=== PATIENT | female | born 1995 | race African-American/Black ===

== ENCOUNTER 2024-02-06 17:11 | Emergency (ER) | payer OTHER ==
[~2024-02-06] VITALS: Ht 175.3 cm; Wt 63.5 kg
[2024-02-06 17:39] VITALS: BP 105/68; TEMP 99.3
[2024-02-06 18:06] VITALS: O2SAT 98
== END 2024-02-06 18:06 | disposition home or self-care (01) ==
LOC: ER 17:31
DX: G44.209 Tension-type headache, unspecified, not intractable (principal); Z88.0 Allergy status to penicillin

== ENCOUNTER 2024-06-18 19:21 | Emergency (ER) | payer OTHER ==
[~2024-06-18] VITALS: Ht 175.3 cm; Wt 63.5 kg
[2024-06-18 20:37] VITALS: BP 122/73; TEMP 99.2; O2SAT 100
== END 2024-06-18 20:59 | disposition home or self-care (01) ==
LOC: ER 19:25
DX: S61.211A Laceration without foreign body of left index finger without damage to nail, initial encounter (principal); Z88.0 Allergy status to penicillin; W26.0XXA Contact with knife, initial encounter; Y93.89 Activity, other specified; Y92.090 Kitchen in other non-institutional residence as the place of occurrence of the external cause; Y99.8 Other external cause status

== ENCOUNTER 2024-06-21 18:42 | Emergency (ER) | payer OTHER ==
[~2024-06-21] VITALS: Ht 175.3 cm; Wt 63.5 kg
[2024-06-21 19:04] VITALS: BP 114/73; TEMP 98.6; O2SAT 100
== END 2024-06-21 19:51 | disposition home or self-care (01) ==
LOC: ER 18:42
DX: R04.0 Epistaxis (principal); Z88.0 Allergy status to penicillin; Z60.2 Problems related to living alone